=== PATIENT | female | born 1945 | race Caucasian/White ===

== ENCOUNTER → 2016-05-28 | Outpatient (CLI) | payer OTHER, MEDICARE ==
--- NOTE | 2016-05-28 12:46 | MAMMOGRAPHY REPORT ---
BILATERAL DIGITAL SCREENING MAMMOGRAM WITH CAD: 05/28/2016 CLINICAL HISTORY: Routine screening. Patient has no complaints. TECHNIQUE: Bilateral CC and MLO views were obtained. Current study was also evaluated with a Comput er Aided Detection (CAD) system. COMPARISON: Comparison is made to exams dated: 05/14/2015 mammogram, 03/31/2013 mammogram, 04/27/2014 mammogram, 03/19/2012 mammogram, 03/03/2011 mammogram, and 02/25/2010 mammogram - [facility]. BREAST COMPOSITION: The tissue of both breasts is almost entirely fatty. FINDINGS: There are benign appearing rodlike secretory calcifications in the breasts. No new suspic ious mass, architectural distortion or cluster of microcalcifications is seen. IMPRESSION: ACR BI-RADS CATEGORY 2: BENIGN There is no mammographic evidence of malignancy. A 1 year screening mammogram is recommended. The p atient will receive written notification of the results. Approximately 10% of breast cancers are not detected with mammography. A negative mammographic repor t should not delay biopsy if a clinically suggestive mass is present. Shraddha Jones M.D. ay/:05/28/2016 08:51:15 Culinary Internship: Clarissa GAONA(Julio)(Peri), [facility] letter sent: Normal 1/2 BI-RADS Code: ACR BI-RADS Category 2: Benign
== END | disposition home or self-care (01) ==
LOC: C.MAMM 08:23
PROVIDERS: ATTEND Obstetrics & Gynecology
DX: Z12.31 Encounter for screening mammogram for malignant neoplasm of breast (principal)

== ENCOUNTER → 2016-09-16 | Outpatient (CLI) | payer OTHER, MEDICARE ==
[2016-09-16 09:54] LABS: ALT/SGPT 36 U/L (12-78); BLOOD UREA NITROGEN 13 mg/dl (7-18); BUN/CREATININE RATIO 15.2 (10-20); CARBON DIOXIDE 28 mmol/L (21-32); CHLORIDE 110 mmol/L (98-107); CREATININE 0.85 mg/dl (0.60-1.20); GLUCOSE 88 mg/dl (70-99); SODIUM 143 mmol/L (136-145)
[2016-09-16 10:05] LABS: CHOLESTEROL 199 mg/dl (0-200); CHOLESTEROL/HDL RATIO 3.2; HDL CHOLESTEROL 63 mg/dl; LDL CHOLESTEROL CALCULATED 108 mg/dl; TRIGLYCERIDES 139 mg/dl (0-150); VERY LOW DENSITY LIPOPROT CALC 28 mg/dl
== END | disposition home or self-care (01) ==
LOC: C.LAB1850 07:13
PROVIDERS: ATTEND Family Medicine
DX: E03.9 Hypothyroidism, unspecified (principal); I10 Essential (primary) hypertension; E78.00 Pure hypercholesterolemia, unspecified

== ENCOUNTER → 2016-10-06 | Outpatient (CLI) | payer OTHER, MEDICARE | END | disposition home or self-care (01) | LOC: C.MAMM 08:54 | PROVIDERS: ATTEND Obstetrics & Gynecology | DX: M85.851 Other specified disorders of bone density and structure, right thigh (principal); M85.852 Other specified disorders of bone density and structure, left thigh ==

== ENCOUNTER → 2016-12-05 | Outpatient (CLI) | payer OTHER, MEDICARE | END | disposition home or self-care (01) | LOC: C.LAB1850 13:02 | PROVIDERS: ATTEND Neuromusculoskeletal Medicine & OMM | DX: E03.9 Hypothyroidism, unspecified (principal) ==

== ENCOUNTER → 2017-06-23 | Outpatient (CLI) | payer OTHER, MEDICARE ==
--- NOTE | 2017-06-24 15:06 | MAMMOGRAPHY REPORT ---
BILATERAL DIGITAL SCREENING MAMMOGRAM TOMOSYNTHESIS WITH CAD: 06/23/2017 CLINICAL HISTORY: Routine screening. Patient has no complaints. TECHNIQUE: Breast tomosynthesis in addition to standard 2D mammography was performed. Current study was also evaluated with a Computer Aided Detection (CAD) system. COMPARISON: Comparison is made to exams dated: 05/28/2016 mammogram, 05/14/2015 mammogram, 04/27/2014 m ammogram, 03/31/2013 mammogram, 03/19/2012 mammogram, and 03/03/2011 mammogram - [facility]ter. BREAST COMPOSITION: The tissue of both breasts is almost entirely fatty. FINDINGS: There are benign rim calcifications in both breasts. No suspicious mass, architectural di stortion or cluster of microcalcifications is seen. IMPRESSION: ACR BI-RADS CATEGORY 2: BENIGN There is no mammographic evidence of malignancy. A 1 year screening mammogram is recommended. The pa tient will receive written notification of the results. Approximately 10% of breast cancers are not detected with mammography. A negative mammographic report should not delay biopsy if a clinically suggestive mass is present. Shraddha Jones M.D. ay/:06/23/2017 15:27:03 Certified Driver Examiner: Tory GAONA(R)(M), [facility] letter sent: Normal 1/2 BI-RADS Code: ACR BI-RADS Category 2: Benign
== END | disposition home or self-care (01) ==
LOC: C.MAMM 13:31
PROVIDERS: ATTEND Obstetrics & Gynecology
DX: Z12.31 Encounter for screening mammogram for malignant neoplasm of breast (principal)

== ENCOUNTER → 2017-09-14 | Outpatient (CLI) | payer OTHER, MEDICARE ==
[2017-09-14 10:03] LABS: ALT/SGPT 29 U/L (12-78); BLOOD UREA NITROGEN 13 mg/dl (7-18); CALCIUM 9.1 mg/dl (8.5-10.1); CARBON DIOXIDE 29 mmol/L (21-32); CHOLESTEROL 173 mg/dl (0-200); CREATININE 0.74 mg/dl (0.60-1.20); GLUCOSE 95 mg/dl (70-99); LDL CHOLESTEROL CALCULATED 86 mg/dl; SODIUM 140 mmol/L (136-145)
== END | disposition home or self-care (01) ==
LOC: C.LAB1850 07:48
PROVIDERS: ATTEND Family Medicine
DX: I10 Essential (primary) hypertension (principal); E78.00 Pure hypercholesterolemia, unspecified; E03.9 Hypothyroidism, unspecified

== ENCOUNTER 2020-05-14 06:13 | Inpatient (IN) ==
--- NOTE | 2020-04-26 11:36 | PAT Medication Instructions ---
Medication Instructions Date of Service April 26, 2020 Home Medications Medication Instructions Recorded lorazepam 0.5 mg tablet 0.5 mg PO DAILY PRN #90 tab 09/02/19 aspirin 81 mg PO BID #60 tab 01/04/20 levothyroxine 125 mcg tablet 62.5 mcg PO QAM #45 tab 02/08/20 amlodipine 10 mg tablet 10 mg PO PM #90 tab 02/24/20 omeprazole 20 mg capsule,delayed 20 mg PO QAM PRN #90 cap 02/24/20 release zolpidem 5 mg tablet 5 mg PO HS PRN #30 tab 04/04/20 simvastatin 10 mg tablet 10 mg PO PM #90 tab 04/05/20 Citracal-D3 Maximum Plus 1 tab PO BID multivitamin 1 tab PO QPM lorazepam 0.5 mg tablet 0.5 mg PO DAILY PRN melatonin 5 mg capsule 5 mg PO QPM aspirin 81 mg PO BID levothyroxine 125 mcg tablet 62.5 mcg PO QAM amlodipine 10 mg tablet 10 mg PO PM omeprazole 20 mg capsule,delayed release 20 mg PO QAM PRN zolpidem 5 mg tablet 5 mg PO HS PRN simvastatin 10 mg tablet 10 mg PO PM ASK your surgeon for instructions aspirin 81 mg PO BID DO NOT take the morning of surgery Citracal-D3 Maximum Plus 1 tab PO BID Take morning of surgery With a small sip of water, OTHERWISE NOTHING TO EAT OR DRINK AFTER MIDNIGHT: lorazepam 0.5 mg tablet 0.5 mg PO DAILY PRN (if needed) levothyroxine 125 mcg tablet 62.5 mcg PO QAM omeprazole 20 mg capsule,delayed release 20 mg PO QAM PRN (if needed) Take evening before surgery Citracal-D3 Maximum Plus 1 tab PO BID multivitamin 1 tab PO QPM lorazepam 0.5 mg tablet 0.5 mg PO DAILY PRN (if needed) melatonin 5 mg capsule 5 mg PO QPM amlodipine 10 mg tablet 10 mg PO PM zolpidem 5 mg tablet 5 mg PO HS PRN (if needed) simvastatin 10 mg tablet 10 mg PO PM Other Notes If you have any questions please call us at [phone] or [phone] or [phone] or [phone]
--- NOTE | 2020-05-01 12:49 | Anesthesiology Consultation ---
Date of Service May 01, 2020 Assessment & Plan (1) Encounter for pre-operative examination: Chart Review Chart Review: Pending: Refer to Additional Notes / Consult section (pending PCP clearance and preop Covid testing ) and Patient seen in Pre Admission Testing Awaiting PCP office visit scheduled 05/07 Per PAT appt on 05/01/20, no recent travel. No known Covid positive contacts or Covid related symptoms. No known Covid infection in the past 90 days. [place] [facility] [place]. Educated on importance of self quarantining, social distancing and wearing mask in public both for the patient and household contacts. Right foot; arthrosurface hemiarthroplasty 01/04/20= Done under GA with LMA #4 x 1 attempt; atraumatic with good seal. Teaching & Discussion Pre-Anesthesia Teaching/Discussion Notes: Instructed NPO after midnight before surgery,except medications with 15 cc of water. Medication instructions provided according to the PAT guidelines. History Surgery Operation Date: 05/14/20 07:45 Proposed Procedures p L3-S1 Decompression and Fusion, Spinal Cord Monitoring - Sergio Payne, Height/Weight Height: 5 ft 4.5 in Weight: 73.9 kg Allergies Allergy/AdvReac Type Severity Reaction Status Date / Time Penicillins Allergy Intermediate Hives Verified 04/04/20 14:04 codeine AdvReac Intermediate Severe Verified 04/04/20 14:04 abdominal pain Medications Home Medications Medication Instructions Recorded Confirmed Last Taken Citracal-D3 Maximum Plus 1 tab PO BID 07/18/19 04/04/20 01/03/20 17:00 multivitamin 1 tab PO QPM 07/18/19 04/04/20 01/03/20 17:00 melatonin 5 mg capsule 5 mg PO QPM cap 12/27/19 04/04/20 01/03/20 21:00 levothyroxine 125 mcg tablet 62.5 mcg PO QAM #45 tab 02/08/20 04/04/20 Unknown amlodipine 10 mg tablet 10 mg PO PM #90 tab 02/24/20 04/04/20 Unknown omeprazole 20 mg capsule,delayed 20 mg PO QAM PRN #90 cap 02/24/20 04/04/20 Unknown release zolpidem 5 mg tablet 5 mg PO HS PRN #30 tab 04/04/20 Unknown simvastatin 10 mg tablet 10 mg PO PM #90 tab 04/05/20 Unknown lorazepam 0.5 mg tablet 0.5 mg PO DAILY PRN #90 tab 05/02/20 Unknown Past Medical History Medical History GERD (gastroesophageal reflux disease) controlled HTN, goal below 140/90 Hypercholesterolemia Hypothyroidism Osteoarthritis Spinal stenosis lumbar 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 No hx of jaw locking - occ clicking Exercise / Class Metabolic Activity II 4-5 Yardwork/Stairs/Walk up hill (one flight of stairs- no chest pain or SOB ) Past Family History Family History Unknown Tuberculosis Osteoporosis Coronary heart disease Pure hypercholesterolemia Hypothyroidism Mother Acute myocardial infarction Hyperlipidemia Myocardial infarction Hypertension Stroke Father Thyroid disease Diabetes Daughter Mentally disabled Grandfather Heart disease Grandmother (Maternal) Diabetes Denies family history of Colon cancer Ovarian cancer Prostate cancer Breast cancer Past Surgical History Surgical History H/O section X 2 H/O shoulder surgery right H/O tubal ligation History of colonoscopy History of dilation and curettage History of foot surgery Rt - 01/04/2020 [facility] History of right cataract extraction History of tonsillectomy and adenoidectomy Hx of appendectomy Hx of left cataract extraction Trigger finger REPAIRED [place] teeth removed Past Anesthesia History No Hx of Anesthesia Complications and No Family Hx of Anesthesia Complications History of PONV No Hx of PONV and No Hx of Motion Sickness Social History Smoking Status: Former smoker tobacco type: cigarettes Do You Dip or Chew Tobacco: No Smoking End Date: quit over 50 years ago Hx Alcohol Use: Yes Alcohol type: wine alcohol intake frequency: a few times a week Hx Substance Use: No substance use type: does not use Review of Systems Patient denies chest pain, shortness of breath, dyspnea on exertion, cough, wheezing, palpitations. No hx of seizures, stroke, NH, apnea/snoring. No hx of blood clots or blood transfusions Physical Exam Vital Signs VITALS BP 142/71 P 67 TEMP 97.6 SP02 99% RESP 16 Constitutional no acute distress ENMT Mouth: no TMJ clicking Thyromental Distance: > or= 3.5 Finger Breadths (3.5) Mallampati Class: I Permanent bridge top side left teeth Neck neck extension not limited Respiratory normal respiratory effort; no respiratory distress Auscultation: lungs clear to auscultation bilaterally; no wheezes Cardiovascular Rate/Rhythm: regular rate and regular rhythm Heart Sounds: no murmur Vessels: no carotid bruit Musculoskeletal Spine: no pain with cervical ROM Extremities: extremities normal to inspection Psychiatric Orientation: alert Testing Laboratory Results 05/01/20 13:19 05/01/20 13:19 PT 9.7 Seconds (9.0-12.0) 05/01/20 13:19 INR 1.0 (0.9-1.1) 05/01/20 13: APTT 26.1 Seconds (21.0-31.0) 05/01/20 13:19 Urine Color Yellow 05/01/20 Unknown Urine Appearance Clear (Clear) 05/01/20 Unknown Urine pH 5.5 (4.5-7.5) 05/01/20 Unknown Ur Specific [place] 1.009 (1.000-1.030) 05/01/20 Unknown Urine Protein Negative (Negative) 05/01/20 Unknown Urine Glucose (UA) Negative (Negative) 05/01/20 Unknown Urine Ketones Negative (Negative) 05/01/20 Unknown Urine Nitrite Negative (Negative) 05/01/20 Unknown Ur Leukocyte Esterase Negative (Negative) 05/01/20 Unknown Blood Type A Positive 05/01/20 13:19 Antibody Screen NEGATIVE 05/01/20 13:19 Electrocardiogram Date: 12/02/19 Findings: + NSR @ (67) Chest X-Ray Date: 12/02/19 FINDINGS: Cardiomediastinal and hilar silhouettes are within normal limits. Calcified plaque of the aorta. No pneumothorax, pleural effusion, airspace conso lidation or overt pulmonary edema. Bones of the chest appear grossly intact. IMPRESSION: No acute process.
[2020-05-01 15:14] LABS: Basophils # (auto) 0.02 K/uL (0-0.2); Basophils % (auto) 0.3 %; Eosinophils # (auto) 0.09 K/uL (0-0.5); Eosinophils % (auto) 1.6 %; Hematocrit (blood only) 45.9 % (37-47); Hemoglobin 15.2 g/dL (12.0-16.0); Immature Granulocytes # (auto) 0.01 K/uL (0.00-0.02); Immature Granulocytes % (auto) 0.2 %; Lymphocytes # (auto) 1.93 K/uL (1.2-3.4); Lymphocytes % (auto) 33.4 %; Mean Corpuscular Hemoglobin 30.5 pg (25-34); Mean Corpuscular Hgb Conc 33.1 g/dL (32-36); Mean Corpuscular Volume 92.2 fL (80-100); Mean Platelet Volume 11.1 fL (7.4-10.4); Monocytes # (auto) 0.42 K/uL (0.11-0.59); Monocytes % (auto) 7.3 %; Neutrophils % (auto) 57.2 %; Platelet Count 253 K/uL (130-400); RDW Coefficient of Variation 12.9 % (11.5-14.5); RDW Standard Deviation 43.4 fL (36.4-46.3); Red Blood Count 4.98 M/uL (4.2-5.4); White Blood Count 5.77 K/uL (4.8-10.8)
[2020-05-01 15:18] LABS: Appearance Urine Clear (Clear); Bilirubin Urine Negative (Negative); Blood Urine Negative (Negative); Color Urine Yellow; Glucose Urine UA Negative (Negative); Ketones Urine Negative (Negative); Leukocyte Esterase Urine Negative (Negative); Nitrite Urine Negative (Negative); Protein Urine Negative (Negative); Specific Gravity Urine 1.009 (1.000-1.030); Urobilinogen Urine Negative (Negative); pH Urine 5.5 (4.5-7.5)
[2020-05-01 15:24] LABS: BUN Creatinine Ratio 21.7 (10-20); Calcium 9.8 mg/dl (8.5-10.1); Creatinine Clr Calc Pharmacy 59.2 ml/min; Est GFR (African American) 80.5; Est GFR (Non-African American) 69.5; Potassium 3.8 mmol/L (3.5-5.1)
[2020-05-01 15:30] LABS: Partial Thromboplastin Time 26.1 Seconds (21.0-31.0); Prothrombin Time 9.7 Seconds (9.0-12.0)
[~2020-05-14 06:13] MED LIST: CLINDAMYCIN 600 MG/54 ML BAG IV SCH; GABAPENTIN 300 MG CAP PO SCH; LR 15ML/HR IV SCH; ceFAZolin 1000MG 1,000 MG/7.5 ML SYR IV SCH
[2020-05-14] MEDS ORDERED: MIDAZOLAM HCL 1 MG/ML 2ML VIAL ONE (06:48)
[2020-05-14] MEDS ORDERED: fentaNYL citrate 100 MCG/2 ML VIAL ONE (06:48)
[2020-05-14] MEDS ORDERED: ROCURONIUM BROMIDE 10 MG/ML 5 ML VIAL IV ONE (06:49)
[2020-05-14] MEDS ORDERED: GLYCOPYRROLATE 0.2 MG/ML VIAL ONE (06:49)
[2020-05-14] MEDS ORDERED: ONDANSETRON INJ 2 MG/ML 2 ML VIAL ONE (06:49)
[2020-05-14] MEDS ORDERED: NEOSTIGMINE METHYLSULFATE 1 MG/ML 10ML VIAL ONE (06:49)
[2020-05-14] MEDS ORDERED: LIDOCAINE HCL 2% 2 ML VIAL/AMP(20MG/ML) INFIL ONE (06:49)
[2020-05-14] MEDS ORDERED: DEXAMETHASONE SOD INJ 4 MG/ML VIAL ONE (06:49)
[2020-05-14] MEDS ORDERED: PROPOFOL IV EMULSION 10 MG/ML 20 ML VIAL IV ONE (06:49)
[2020-05-14] MEDS ORDERED: BUPIVACAINE/EPINEPHRINE 0.5% MPF 1:200,000 30 ML VIAL ONE (07:13)
[2020-05-14] MEDS ORDERED: BACITRACIN INJ 50,000 UNIT VIAL ONE (07:14)
--- NOTE | 2020-05-14 07:32 | History & Physical Bridge Note ---
Date of Service May 14, 2020 History & Physical Bridge Note I have examined the patient, reviewed the History & Physical and in the interval since the performance of the History & Physical I have noted the following changes of clinical significance: no changes noted
--- NOTE | 2020-05-14 07:33 | History & Physical Report ---
Date of Service May 14, 2020 Assessment & Plan (1) Neurogenic claudication due to lumbar spinal stenosis: Admission and Anticipated Discharge Date Admission Date: L3-S1 decompression fusion History of Present Illness Chief Complaint: Back and bilateral leg pain Primary Care Provider: Geena Leiva MD This is a 75-year-old female presents with chronic persistent back and leg pain. Failing course of nonoperative care she is here for surgical invention. Allergies Allergy/AdvReac Type Severity Reaction Status Date / Time Penicillins Allergy Intermediate Hives Verified 05/14/20 06:36 codeine AdvReac Intermediate Severe Verified 05/14/20 06:36 abdominal pain iodine AdvReac Intermediate Hives Verified 05/14/20 06:36 Home Medications Medication Instructions Recorded Confirmed Type Citracal-D3 Maximum Plus 1 tab PO BID 07/18/19 05/14/20 History multivitamin 1 tab PO QAM 07/18/19 05/14/20 History melatonin 5 mg capsule 5 mg PO QPM cap 12/27/19 05/14/20 History levothyroxine 125 mcg tablet 62.5 mcg PO QAM #45 tab 02/08/20 05/14/20 Rx amlodipine 10 mg tablet 10 mg PO PM #90 tab 02/24/20 05/14/20 Rx omeprazole 20 mg capsule,delayed 20 mg PO QAM PRN #90 cap 02/24/20 05/14/20 Rx release simvastatin 10 mg tablet 10 mg PO PM #90 tab 04/05/20 05/14/20 Rx lorazepam 0.5 mg tablet 0.5 mg PO DAILY PRN #90 tab 05/02/20 05/14/20 Rx zolpidem [Ambien] 5 mg PO HS PRN 05/14/20 05/14/20 History Past Med/Surg History Medical History GERD (gastroesophageal reflux disease) controlled HTN, goal below 140/90 Hypercholesterolemia Hypothyroidism Osteoarthritis Spinal stenosis lumbar 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 No hx of jaw locking - occ clicking Surgical History H/O section X 2 H/O shoulder surgery right H/O tubal ligation History of colonoscopy History of dilation and curettage History of foot surgery Rt - 01/04/2020 [facility] History of right cataract extraction History of tonsillectomy and adenoidectomy Hx of appendectomy Hx of left cataract extraction Trigger finger REPAIRED [place] teeth removed Family History Unknown Tuberculosis Osteoporosis Coronary heart disease Pure hypercholesterolemia Hypothyroidism Mother Acute myocardial infarction Hyperlipidemia Myocardial infarction Hypertension Stroke Father Thyroid disease Diabetes Daughter Mentally disabled Grandfather Heart disease Grandmother (Maternal) Diabetes Denies family history of Colon cancer Ovarian cancer Prostate cancer Breast cancer Social History Smoking Status: Former smoker Age Started Using Tobacco: 18; Age Quit Using Tobacco: 20; packs per day: 0.25; Years Smoked: 2; Smoking End Date: quit over 50 years ago; Second Hand Exposure: Yes ( A CHILD); Do You Dip or Chew Tobacco: No; Tobacco Cessation Education Requested by Patient: No Hx Alcohol Use: Yes Alcohol type: wine Alcohol Intake Frequency Comment: 4 -4 oz glasses of wine per week Hx Substance Use: No Preferred Language: Spanish Communication Ability: Effective Visual Impairment: No Limitations Hearing Ability: Normal Speech And Language Clinician Required: No Beliefs That Will Affect Care: None marital status: Current Living Situation: Spouse 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
[2020-05-14] MEDS ORDERED: ONDANSETRON INJ 2 MG/ML 2 ML VIAL IV PRN ×2 (07:37→11:33)
[2020-05-14] MEDS ORDERED: ePHEDrine sulfate 50 MG/ML AMP IV PRN (07:37)
[2020-05-14] MEDS ORDERED: ATROPINE SULFATE 0.1 MG/ML 10ML SYR IV PRN (07:37)
[2020-05-14] MEDS ORDERED: HYDROmorphone INJ 0.5 MG/0.5 ML SYR IV PRN ×2 (07:37→11:33)
[2020-05-14] MEDS ORDERED: fentaNYL citrate 100 MCG/2 ML VIAL IV PRN (07:37)
[2020-05-14] MEDS ORDERED: HYDROmorphone INJ 2 MG/ML SYR/VIAL ONE (09:47)
[2020-05-14] MEDS ORDERED: FLOSEAL HEMOSTATIC MATRIX 10ML TOP ONE (09:48)
--- NOTE | 2020-05-14 09:50 | Operative Report ---
Post Operative Report Pre & Post Diagnosis Operation Date: 05/14/20 07:45 Pre-Op Diagnosis: Spinal Stenosis, Lumbar Region with Neurogenic Post-Op Diagnosis: Spinal Stenosis, Lumbar Region with Neurogenic I identified the patient and participated in the time-out.: Yes Procedure Operation Date: 05/14/20 07:45 Actual Procedures #1 lumbar decompression with bilateral medial facetectomies and foraminotomies L3-4, L4-5 and L5-S1. #2 posterior spinal fusion L3-4, L4-5 L5-S1. #3 placement posterior segmental instrumentation L3-S1. #4 interbody fusion L4-5 L5-S1. #5 placement peek cage 11 x 22 mm at L for 5 and 10 x 22 at L5-S1. #6 placement locally harvested morselized autograft in the posterior lateral gutters. #7 placed infuse collagen sponge, master graft in the posterior lateral gutters and I factor in the interbody spaces. Surgeon Sergio Payne, Egg Pasteurizer Valerie Mills Estimated Blood Loss 100 Findings Consistent with Post-Op Diagnosis Specimens None Indications This is a 75-year-old female presents with above-mentioned diagnosis after failing since course of nonoperative care she is here for the above-mentioned procedure. Description of Procedure Patient met with identified informed consent obtained. Patient was then taken to the operative suite underwent an patient placed in a prone position the Olds table top Melvin frame. All bony prominences well-padded eyes inspected to ensure no external pressure placed upon the. This point the lumbar spine was prepped and draped in a sterile fashion. Sharp dissection with the assistance of Bovie cautery performed down to and exposing the lamina and transverse processes of L3-L4-L5 and the sacral ala bilaterally. From a caudal cephalad fashion complete laminectomy of L5 L4 and L3 was performed including bilateral medial facetectomies and foraminotomies addressing severe spinal stenosis. Pedi jeannette screws were then placed L3-L4-L5 and S1 levels bilaterally with assistance of fluoroscopy the proper sized claude placed. By way of a transfemoral approach on the right a complete discectomy of L5-S1 was performed endplates curetted to subcortical mean bone and a 10 x 22 mm peek cage filled with I factor tapped in position. Then proceeded L4-L5 and again by way of a transforaminal portion right complete discectomy performed endplates curetted to subcortical being bone and a 11 x 22 mm peek cage filled with I factor tapped in position. The rods were then locked in final position bilaterally. The transverse processes of L3-L4-L5 and sacral ala burred to subcortical bleeding bone. Infuse collagen sponge mass graft local autograft was placed in the posterior lateral gutters. 15 round BLAS drain inserted. The incision was then closed with 1 Vicryl the fascia 2-0 Vicryl subcutaneously and 4 Monocryl for final skin closure. Steri- Strip sterile dressings placed. Patient will continue PACU stable condition. Please note spinal cord monitoring was utilized at the procedure no changes noted. I attest to the content of the Intraoperative Record and any orders documented therein. Any exceptions are noted below.
--- NOTE | 2020-05-14 11:23 | Anesthesiology Progress Note ---
Date of Service May 14, 2020 Anesthesia Post Procedure Vital Signs Vital Signs: Temp Pulse Pulse Resp BP BP Pulse Ox 05/14/20 11:08 36.4 C L 64 16 104/55 L 100 05/14/20 10:55 63 16 101/49 L 99 05/14/20 10:50 36.3 C L 60 12 102/51 L 99 05/14/20 10:40 64 18 99/56 L 99 05/14/20 10:30 60 12 106/62 98 05/14/20 10:20 61 10 L 110/49 L 98 05/14/20 10:13 36.0 C L 69 17 99/50 L 99 05/14/20 06:41 36.7 C 58 L 18 166/75 H 99 Transfer of Care Handoff Completed per policy Notes Mental Status: alert / awake / arousable and participated in evaluation Patient Amnestic to Procedure: Yes Nausea / Vomiting: adequately controlled Pain: adequately controlled Airway Patency, RR, SpO2: stable & adequate BP & HR: stable & adequate Hydration State: stable & adequate Anesthetic Complications: no major complications apparent and Pt Satisfied with anesthetic care
[2020-05-14] MEDS ORDERED: LORazepam 0.5 MG/1 ML VIAL IV PRN (11:33)
[2020-05-14] MEDS ORDERED: traMADol HCL 50 MG TABLET PO PRN (11:33)
[2020-05-14] MEDS ORDERED: ACETAMINOPHEN 1,000 MG/100 ML VIAL IV PRN (11:33)
[2020-05-14] MEDS ORDERED: NALOXONE HCL 0.4 MG/1 ML VIAL/CARP IV PRN (11:33)
[2020-05-14] MEDS ORDERED: bisacodyL 10 MG SUPP PR PRN (11:33)
[2020-05-14] MEDS ORDERED: ALUMINUM/MAGNESIUM SUSP 30 ML UDC PO PRN (11:33)
[2020-05-14] MEDS ORDERED: METOCLOPRAMIDE HCL INJ 5 MG/ML 2 ML VIAL IV PRN (11:33)
[2020-05-14] MEDS ORDERED: MAGNESIUM HYDROXIDE SUSP 30 ML UDC PO PRN (11:33)
[2020-05-14] MEDS ORDERED: LORazepam 0.5 MG TAB PO PRN (11:33)
[2020-05-14] MEDS ORDERED: ACETAMINOPHEN 500 MG TAB PO PRN (11:33)
[2020-05-14] MEDS ORDERED: FAMOTIDINE 20 MG TAB PO PRN (11:33)
[2020-05-14] MEDS ORDERED: SOD PHOSPHATE/SOD BIPHOSPHATE ENEMA 132 ML BTL PR PRN (11:33)
[2020-05-14] MEDS ORDERED: hydrOXYzine HCl 25 MG TAB PO PRN (11:33)
[2020-05-14] MEDS ORDERED: ZOLPIDEM TARTRATE 5 MG TAB PO PRN (11:33)
[2020-05-14] MEDS ORDERED: HYDROmorphone INJ 1 MG/ML SYRINGE IV PRN (11:33)
[2020-05-14] MEDS ORDERED: PROMETHAZINE HCL 12.5 MG in SODIUM CHLORIDE 0.9% 50 ML IV PRN (11:33)
[2020-05-14] MEDS ORDERED: DO NOT ADMINISTER FLU VACCINE PRN (11:33)
[2020-05-14] MEDS ORDERED: ONDANSETRON 4 MG OD TAB PO PRN (11:33)
[2020-05-14] MEDS ORDERED: DO NOT ADMINISTER PNEUMOCOCCAL VACCINE PRN (11:33)
[2020-05-14] MEDS ORDERED: diphenhydrAMINE Capsule 25 MG CAP PO PRN (11:33)
[2020-05-14] MEDS ORDERED: PANTOprazole 40 MG TAB PO PRN (11:50)
--- NOTE | 2020-05-14 12:14 | Fluoroscopy Report ---
FL lumbar spine 2-3V CLINICAL HISTORY: L3-S1 DECOMPRESSION AND FUSION COMPARISON STUDY: None. FLUOROSCOPY TIME: 28 seconds. FLUOROSCOPIC IMAGES: 3 FINDINGS: Fluoroscopy was provided during L4-L5 and L5-S1 discectomies with interbody spacer placemen t. There is a posterior decompression. Bilateral pedicle screws at the L3, L4, L5 and S1 levels are n oted. There are interconnecting rods. Hardware is intact. There are no unexpected radiopaque foreign bodies. IMPRESSION: Fluoroscopy provided during L4-L5 and L5-S1 discectomies with posterior decompression an d L3-S1 bilateral pedicle screw fusion. ACT 112: Negative or not required by law. Electronically signed by: David Ferrari M.D. 05/14/2020 12:12 PM
--- NOTE | 2020-05-14 12:57 | Hospitalist Consultation ---
Date of Consultation May 14, 2020 Assessment & Plan (1) Neurogenic claudication due to lumbar spinal stenosis: Patient failed conservative treatment as an outpatient and underwent L4-S1 discectomy with posterior decompression and screw fusion with Dr. Payne POD #0 Pain is generally controlled No fever or chills Physical therapy and Occupational Therapy per orthopedics Further management per orthopedics (2) HTN, goal below 140/90: Hypertension is stable at this point Continue usual home medications No indication for telemetry Further management as an outpatient (3) Hypercholesterolemia: Continue simvastatin (4) Hypothyroidism: Continue levothyroxine (5) Insomnia: Continue Ambien and lorazepam as needed (6) Heartburn: Outpatient meds include omeprazole 20 mg daily Continue GERD management as an outpatient Continue PPI inpatient and discharge on usual home meds Thank you very much for including us in the care of this patient. Multiple systems were reviewed and are stable. At this time we will sign off. Please feel free to reconsult as needed. Please refer to Dr. Good's addendum for corrections and additions. Supervising Physician Co-Signing Physician Notes I personally saw and examined the patient. I verified all holguin points and agree with YOSVANY Gomez with the following exceptions and/or additions: None History of Present Illness Attending Physician: Sergio Payne, DO History of Present Illness Attending: Dr. Good This is a very pleasant 75-year-old female who underwent laminectomy and fusion of through L3-S1 earlier today with Dr. Payne. Pain is generally well controlled. She still appears to be under the influence of some anesthesia as she is drifting off frequently during our conversation. She does easily awaken and is oriented x3. Past medical history includes hypertension, hypothyroidism, anxiety, insomnia, GERD, hyperlipidemia. Patient failed conservative treatment as an outpatient for lumbar go. She was found to have degenerative disease of her lumbar and upper sacral section. She underwent surgery with Dr. Payne today and did very well.She denies any fever or chills. Her pain is generally controlled. She has no chest pain or tightness. She has no abdominal pain. She has no back pain at this time.She has no acute complaints. Allergies Allergy/AdvReac Type Severity Reaction Status Date / Time Penicillins Allergy Intermediate Hives Verified 05/14/20 06:36 codeine AdvReac Intermediate Severe Verified 05/14/20 06:36 abdominal pain iodine AdvReac Intermediate Hives Verified 05/14/20 06:36 Home Medications Medication Instructions Recorded Confirmed Type Citracal-D3 Maximum Plus 1 tab PO BID 07/18/19 05/14/20 History multivitamin 1 tab PO QAM 07/18/19 05/14/20 History melatonin 5 mg capsule 5 mg PO QPM cap 12/27/19 05/14/20 History levothyroxine 125 mcg tablet 62.5 mcg PO QAM #45 tab 02/08/20 05/14/20 Rx amlodipine 10 mg tablet 10 mg PO PM #90 tab 02/24/20 05/14/20 Rx omeprazole 20 mg capsule,delayed 20 mg PO QAM PRN #90 cap 02/24/20 05/14/20 Rx release simvastatin 10 mg tablet 10 mg PO PM #90 tab 04/05/20 05/14/20 Rx lorazepam 0.5 mg tablet 0.5 mg PO DAILY PRN #90 tab 05/02/20 05/14/20 Rx oxycodone 5 mg PO Q6H PRN #30 tab 05/14/20 Rx tramadol 50 mg PO Q6H PRN #30 tab 05/14/20 Rx zolpidem [Ambien] 5 mg PO HS PRN 05/14/20 05/14/20 History Patient History Medical History GERD (gastroesophageal reflux disease) controlled HTN, goal below 140/90 Hypercholesterolemia Hypothyroidism Osteoarthritis Spinal stenosis lumbar 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 No hx of jaw locking - occ clicking Surgical History H/O section X 2 H/O shoulder surgery right H/O tubal ligation History of colonoscopy History of dilation and curettage History of foot surgery Rt - 01/04/2020 [facility] History of right cataract extraction History of tonsillectomy and adenoidectomy Hx of appendectomy Hx of left cataract extraction Trigger finger REPAIRED [place] teeth removed Family History Unknown Tuberculosis Osteoporosis Coronary heart disease Pure hypercholesterolemia Hypothyroidism Mother Acute myocardial infarction Hyperlipidemia Myocardial infarction Hypertension Stroke Father Thyroid disease Diabetes Daughter Mentally disabled Grandfather Heart disease Grandmother (Maternal) Diabetes Denies family history of Colon cancer Ovarian cancer Prostate cancer Breast cancer Social History Smoking Status: Former smoker Age Started Using Tobacco: 18; Age Quit Using Tobacco: 20; packs per day: 0.25; Years Smoked: 2; Smoking End Date: quit over 50 years ago; Second Hand Exposure: Yes ( A CHILD); Do You Dip or Chew Tobacco: No; Tobacco Cessation Education Requested by Patient: No Hx Alcohol Use: Yes Alcohol type: wine Alcohol Intake Frequency Comment: 4 -4 oz glasses of wine per week Hx Substance Use: No Preferred Language: Citizen Of [place] Communication Ability: Effective Visual Impairment: No Limitations Hearing Ability: Normal Corporate Safety Coordinator Required: No Beliefs That Will Affect Care: None marital status: Current Living Situation: Spouse current occupational status: 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 Pleasant. Talkative EYES: No icterus, gaze conjugate. Pupils are constricted but reactive. NOSE: No evidence of epistaxis MOUTH: No lesions or candidiasis NECK: Supple LUNGS: CTA B/L, no wheezes, rales or rhonchi HEART: Regular, rate controlled ABDOMEN: Soft, NT, ND, BS Present BACK: Did not examine dressing as patient was just recently seen by Dr. Payne EXTREMITIES: No LE edema, pedal pulses intact and equal bilaterally. SCDs and ANYI hose are in place. Patient has good sensation to bilateral feet. Strength is equal and appropriate. Did not assess for straight leg raise at this time. NEURO: A&OX3 Results & Data Results & Data ([facility]) Vital Signs (Past 12 Hours) Vital Signs Temp Pulse Pulse Resp BP BP Pulse Ox 05/14/20 12:10 36.3 C L 64 16 114/61 100 05/14/20 11:35 36.4 C L 63 16 109/61 100 05/14/20 11:08 36.4 C L 64 16 104/55 L 100 05/14/20 10:55 63 16 101/49 L 99 05/14/20 10:50 36.3 C L 60 12 102/51 L 99 05/14/20 10:40 64 18 99/56 L 99 05/14/20 10:30 60 12 106/62 98 05/14/20 10:20 61 10 L 110/49 L 98 05/14/20 10:13 36.0 C L 69 17 99/50 L 99 05/14/20 06:41 36.7 C 58 L 18 166/75 H 99 Laboratory Results 05/01/20 13:19 05/01/20 13:19 Diagnostic Findings FL lumbar spine 2-3V CLINICAL HISTORY: L3-S1 DECOMPRESSION AND FUSION COMPARISON STUDY: None. FLUOROSCOPY TIME: 28 seconds. FLUOROSCOPIC IMAGES: 3 FINDINGS: Fluoroscopy was provided during L4-L5 and L5-S1 discectomies with interbody spacer placement. There is a posterior decompression. Bilateral pedicle screws at the L3, L4, L5 and S1 levels are noted. There are interconnecting rods. Hardware is intact. There are no unexpected radiopaque foreign bodies. IMPRESSION: Fluoroscopy provided during L4-L5 and L5-S1 discectomies with posterior decompression and L3-S1 bilateral pedicle screw fusion. Electronically signed by: David Ferrari M.D. 05/14/2020 12:12 PM PG Care Time/CCT Total # of Minutes Spent Total Time Spent with Patient: Total time spent is greater than 50% in coordi nation of care (as documented) at patient's floor/unit and/or counseling patient: Coding Level of Care Code 25755 Inpt Consult Level 4 Diagnoses Neurogenic claudication due to lumbar spinal stenosis M48.062 HTN, goal below 140/90 I10 Hypercholesterolemia E78.00 Hypothyroidism E03.9 Insomnia G47.00 Heartburn R12 Time Spent (min) 45
[2020-05-14] MEDS: SODIUM CHLORIDE 0.9% 1000ML 1,000 ML IV SCH ×2 (13:37→22:31)
[2020-05-14] MEDS: CLINDAMYCIN 600 MG in DEXTROSE 5% 50 ML IV SCH (15:35)
[2020-05-14] MEDS: oxyCODONE HCL IR 5 MG TAB (IMMEDIATE RELEASE) PO PRN ×2 (15:42→21:06)
[2020-05-14] MEDS: SIMVASTATIN 10 MG TAB PO SCH (21:05)
[2020-05-14] MEDS: amLODIPine BESYLATE 5 MG TAB PO SCH (21:05)
[2020-05-14] MEDS: DOCUSATE SODIUM/SENNA 50/8.6MG TAB PO SCH (21:05)
[2020-05-14] MEDS: MELATONIN 3 MG TAB PO SCH (21:07)
[2020-05-15] MEDS: CLINDAMYCIN 600 MG in DEXTROSE 5% 50 ML IV SCH (00:11)
[2020-05-15] MEDS ORDERED: COUGH DROP (SUGAR FREE) LOZ 24 LOZ/1 BOX BUCCAL ONE (00:13)
[2020-05-15] MEDS: oxyCODONE HCL IR 5 MG TAB (IMMEDIATE RELEASE) PO PRN ×4 (01:44→17:26)
[2020-05-15] MEDS: LEVOTHYROXINE SODIUM 125 MCG TABLET PO SCH (06:11)
[2020-05-15] MEDS: POLYETHYLENE (MIRALAX) 17 GM PACK PO SCH ×4 (06:11→23:57)
[2020-05-15 06:12] LABS: Hematocrit (blood only) 34.4 % (37-47); Hemoglobin 11.8 g/dL (12.0-16.0); Immature Granulocytes # (auto) 0.01 K/uL (0.00-0.02); Immature Granulocytes % (auto) 0.1 %; Lymphocytes # (auto) 0.77 K/uL (1.2-3.4); Lymphocytes % (auto) 6.4 %; Mean Corpuscular Hemoglobin 30.6 pg (25-34); Mean Corpuscular Hgb Conc 34.3 g/dL (32-36); Mean Corpuscular Volume 89.4 fL (80-100); Mean Platelet Volume 10.4 fL (7.4-10.4); Monocytes # (auto) 0.98 K/uL (0.11-0.59); Monocytes % (auto) 8.1 %; Neutrophils # (auto) 10.28 K/uL (1.4-6.5); Neutrophils % (auto) 85.4 %; Platelet Count 222 K/uL (130-400); RDW Standard Deviation 42.6 fL (36.4-46.3); Red Blood Count 3.85 M/uL (4.2-5.4); White Blood Count 12.04 K/uL (4.8-10.8)
[2020-05-15 06:37] LABS: BUN Creatinine Ratio 16.8 (10-20); Calcium 8.3 mg/dl (8.5-10.1); Est GFR (African American) 98.7; Est GFR (Non-African American) 85.2; Potassium 4.1 mmol/L (3.5-5.1)
--- NOTE | 2020-05-15 08:03 | Anesthesiology Progress Note ---
Date of Service May 15, 2020 Anesthesia Post Procedure Vital Signs Vital Signs: Temp Pulse Pulse Resp BP Pulse Ox 05/15/20 07:06 36.7 C 60 16 119/64 95 05/15/20 02:15 36.6 C 63 15 133/72 99 05/14/20 22:52 36.4 C L 62 15 126/76 95 05/14/20 20:03 36.3 C L 64 16 112/61 98 05/14/20 15:51 95 05/14/20 15:36 67 18 144/68 H 100 05/14/20 14:11 71 16 122/61 99 05/14/20 13:15 70 16 127/67 100 05/14/20 12:10 36.3 C L 64 16 114/61 100 05/14/20 11:35 36.4 C L 63 16 109/61 100 05/14/20 11:08 36.4 C L 64 16 104/55 L 100 05/14/20 10:55 63 16 101/49 L 99 05/14/20 10:50 36.3 C L 60 12 102/51 L 99 05/14/20 10:40 64 18 99/56 L 99 05/14/20 10:30 60 12 106/62 98 05/14/20 10:20 61 10 L 110/49 L 98 05/14/20 10:13 36.0 C L 69 17 99/50 L 99 Notes Mental Status: alert / awake / arousable Patient Amnestic to Procedure: Yes Nausea / Vomiting: adequately controlled Pain: adequately controlled Airway Patency, RR, SpO2: stable & adequate BP & HR: stable & adequate Hydration State: stable & adequate Anesthetic Complications: no major complications apparent and Pt Satisfied with anesthetic care
[2020-05-15] MEDS: MULTIVITAMIN TAB PO SCH (09:25)
--- NOTE | 2020-05-15 10:30 | Orthopedic Progress Note ---
Date of Service May 15, 2020 Assessment & Plan (1) Neurogenic claudication due to lumbar spinal stenosis: Patient is postoperative day 1. Overall she is doing well. We will continue with pain control. Continue with aggressive wound bowel regimen. Maintain BLAS drain and dressing. Start physical therapy today. Anticipate discharge home later this week. Admission and Anticipated Discharge Date Admission Date: May 14, 2020 Supervising Physician Co-Signing Physician Notes Dr. Sergio Payne Subjective Patient is postoperative day 1 multilevel lumbar decompression fusion. She is struggling with a bit with pain control off and on. Reports lower back pain only. No radicular complaints. BLAS drain output last shift was 110 cc. H&H is morning are 11.8 and 34.4 respectively. Review of Systems Review of Systems: All systems reviewed & are unremarkable except as noted in HPI & below Physical Exam Physical Exam: Alert and oriented x3 no acute distress Lumbar dressing is clean dry and intact Strength is 5/5 bilateral EHL, dorsiflexion, plantarflexion, quadriceps, hamstrings Calf soft nontender bilaterally. Constitutional: WD/WN, vitals as above Eyes: normal visual campos by confrontation ENMT: external ear and nose normal, oropharynx normal Neck: normal visual inspection Respiratory: normal respiratory effort Cardiovascular: Extremities: normal capillary refill Chest (Breasts): Chest: normal inspection of chest Gastrointestinal (Abdomen): Inspection/Auscultation: abdomen normal to inspection Musculoskeletal: no cyanosis or clubbing, extremities motor strength 5/5 Skin: no rashes, warm and dry Neurologic: normal touch/pain/proprioception and moves all extremities Psychiatric: A+Ox3, euthymic affect Results & Data ([facility]) Vital Signs (Past 12 Hours) Vital Signs Temp Pulse Pulse Resp BP Pulse Ox 05/15/20 07:06 36.7 C 60 16 119/64 95 05/15/20 02:15 36.6 C 63 15 133/72 99 05/14/20 22:52 36.4 C L 62 15 126/76 95
[2020-05-15] MEDS: MELATONIN 3 MG TAB PO SCH (20:24)
[2020-05-15] MEDS: SIMVASTATIN 10 MG TAB PO SCH ×2 (20:25→21:36)
[2020-05-15] MEDS: DOCUSATE SODIUM/SENNA 50/8.6MG TAB PO SCH (20:25)
[2020-05-15] MEDS: amLODIPine BESYLATE 5 MG TAB PO SCH (20:25)
[2020-05-16] MEDS: oxyCODONE HCL IR 5 MG TAB (IMMEDIATE RELEASE) PO PRN ×5 (00:03→21:17)
[2020-05-16] MEDS: LEVOTHYROXINE SODIUM 125 MCG TABLET PO SCH (06:34)
[2020-05-16] MEDS: POLYETHYLENE (MIRALAX) 17 GM PACK PO SCH ×3 (06:35→16:54)
[2020-05-16] MEDS: dexAMETHasone 8 MG in SYRINGE 0 ML IV SCH (08:16)
[2020-05-16] MEDS: MULTIVITAMIN TAB PO SCH (08:38)
--- NOTE | 2020-05-16 10:28 | Orthopedic Progress Note ---
Date of Service May 16, 2020 Assessment & Plan (1) Neurogenic claudication due to lumbar spinal stenosis: Admission and Anticipated Discharge Date Admission Date: May 14, 2020 Patient will continue physical therapy today monitor her BLAS operatively discharge home tomorrow. Subjective Back pain controlled leg pain improved Physical Exam Physical Exam: Patient is good strength testing appears comfortable. Results & Data ([facility]) Vital Signs (Past 12 Hours) Vital Signs Temp Pulse Resp BP Pulse Ox 05/16/20 08:21 37.5 C 72 16 134/63 93
[2020-05-16] MEDS: amLODIPine BESYLATE 5 MG TAB PO SCH (21:14)
[2020-05-16] MEDS: SIMVASTATIN 10 MG TAB PO SCH (21:14)
[2020-05-16] MEDS: DOCUSATE SODIUM/SENNA 50/8.6MG TAB PO SCH (21:14)
[2020-05-16] MEDS: MELATONIN 3 MG TAB PO SCH (21:15)
[2020-05-17] MEDS: POLYETHYLENE (MIRALAX) 17 GM PACK PO SCH ×3 (00:08→12:46)
[2020-05-17] MEDS: oxyCODONE HCL IR 5 MG TAB (IMMEDIATE RELEASE) PO PRN ×3 (04:02→12:45)
[2020-05-17] MEDS: LEVOTHYROXINE SODIUM 125 MCG TABLET PO SCH (05:39)
[2020-05-17] MEDS: MULTIVITAMIN TAB PO SCH (07:57)
[2020-05-17] MEDS: dexAMETHasone 8 MG in SYRINGE 0 ML IV SCH (07:58)
--- NOTE | 2020-05-17 08:24 | Discharge Summary ---
Date of Service May 17, 2020 Admission HPI Per Admitting Provider This is a 75-year-old female presents with chronic persistent back and leg pain. Failing course of nonoperative care she is here for surgical invention. Principal Diagnosis Lumbar spinal stenosis with neurogenic claudication Discharge Data Allergies Allergy/AdvReac Type Severity Reaction Status Date / Time Penicillins Allergy Intermediate Hives Verified 05/14/20 06:36 codeine AdvReac Intermediate Severe Verified 05/14/20 06:36 abdominal pain iodine AdvReac Intermediate Hives Verified 05/14/20 06:36 Consultations 05/14/20 11:33 Consult Hospitalist Routine Procedures Performed Operation Date: 05/14/20 07:45 Actual Procedures p L3-S1 Decompression and Fusion, Spinal Cord Monitoring, Application of Bone Morphogenetic Protein and Allograft, Placement of Interbody L5-S1, L4-L5 - Sergio Payne DO Ordered Studies 05/14/20 07:45 FL fluoroscopy <1hr Routine FL lumbar spine 2-3V Routine Hospital Course (1) Neurogenic claudication due to lumbar spinal stenosis: Patient went lumbar decompression fusion tolerated so was taken to orthopedic for postoperative. Postop day 1 she was up and ambulating progressed to postop day #2 on postop day #3 she was ambulating well pain controlled X strength testing BLAS drain decreasing appropriately. Subsequent discharge home. Discharge orders instructions found the chart for further review. Total Time Total Time Spent Total Time Spent (In Minutes): 20 minutes Discharge Plan Discharge Items Patient Disposition: Home - Self-Care Reason For Visit: Spinal Stenosis, Lumbar Region with Neurogenic Discharge Diagnosis: Lumbar spinal stenosis with neurogenic claudication Activity: As commented below Non-emergency contact: Primary Care Provider Call non-emergency contact if: you have any medication questions Follow-up/Referrals: Geena Leiva MD [Primary Care Provider] - Diet: Regular Addtl Attending Provider Instructions: ACTIVITY RECOMMENDATIONS: SELF CARE INSTRUCTIONS AFTER THORACIC/LUMBAR FUSIONS 1. You may walk to your tolerance. It is good exercise for your legs and back. Expect some back and intermittent leg aches and pains. 2. You may perform "counter-top" level activities (make a sandwich, skinny with a project, etc.). 3. No bending or lifting of more than 10 pounds or back twisting of any nature (roll like a log when turning in bed). 4. You may ride in a car for 20-30 minutes at a time. No driving until after your first visit with your doctor. 5. Frequent changes of position and restricting sitting to 30 minutes at a time will help limit the amount of back spasms and stiffness you may experience. 6. You may discontinue the use of ambulatory aids (cane, crutches, etc.) once your strength and confidence allow. 7. You may open hearth door liner the shower and let water strike your incision when you arrive home at least once daily. Do not take a tub bath, sit in a hot tub or go into a swimming pool until after your first recheck in the office. SPECIAL CARE INSTRUCTIONS: VERY IMPORTANT TO READ AND REVIEW A. Your surgical incision has been closed with a cosmetic suture under the skin that will dissolve in about 6 weeks. In 14 days, you can use a pair of clean scissors and cut the suture that is left outside of the skin at the ends of your incision. 1. The small skin tapes can be removed 7 days after surgery if they have not fallen off by that point. 2. You may keep the wound open to air as much as possible to promote healing after post-op day number 5 unless told otherwise by your doctor. 3. If you think the wound looks like it is becoming infected (redness or worsening drainage) and/or you are experiencing fever, chill or worsening back pain and muscle spasms, contact the office so that we may evaluate you as soon as possible. B. Complications are uncommon, but please contact us if you have any signs or symptoms of: 1. wound infection (fever higher than 102.5 degrees F, redness, separation of wound, drainage, or increasing pain from the incision) 2. blood clots in legs (pain, swelling, redness and warmth in legs) 3. urinary tract infection (fever higher than 102.5 degrees F, burning upon urination or increased frequency of urination) 4. nerve problems (inability to walk on your toes or heels, numbness, loss of bowel or bladder control) 5. any other symptoms that concern you C. Please call the office at if you have any concerns or questions about your operation or recovery. D. No smoking! Smoking drastically decreases the chance of a solid fusion. E. Do not take any anti-inflammatory medications (Indocin, Advil, Motrin, Aspirin, Naprosyn, etc.) as these may inhibit the chance of a solid fusion. Tylenol is okay to take for pain. MANAGING PAIN AFTER SPINAL SURGERY 1. Narcotic medication is intended for short-term use and will be provided for surgical pain. Surgical pain usually lasts for a period of 4-6 weeks. Narcotic medication includes Percocet, Vicodin, Darvocet, Tylenol #3 or Lortab. 2. Longer-term pain is more appropriately treated with non-narcotic medication such as Tylenol ES. 3. Muscle spasm is not appropriately treated with narcotics. Muscle relaxers such as Soma, Flexeril or Skelaxin can be used along with Tylenol ES. 4. Remember that we all live with some "aches and pains". This is not unusual or uncommon after an injury or as we get older. a. Back pain is expected and may include muscle spasms for 4 to 6 weeks after surgery. The pain should gradually improve. If the pain worsens for no apparent reason, please contact the office. b. Intermittent leg pain may also be experienced and should not be concerned about unless it worsens for no apparent reason. If so, please contact the office. 5. We will provide appropriate medication within the normal guidelines of their prescribed use. We will also be very cautious and aware of potential abuse and extended duration of patients' medication needs. a. Pain medications are for your comfort and to assist with sleep and rest so that the tissue can heal. They are not provided in order to return to normal activity and should not be used through the day. To do so or worsening pain at night can result from ongoing tissue damage and development of tolerance to the prescribed medicine. 6. Please allow 2-3 days to process refills. Prescriptions will not be mailed but must be picked up at the office. FOLLOW UP VISIT: Keep your scheduled follow-up appointment. Any questions, please call the office at . Pending Studies at Discharge: No Stand-Alone Forms: My [employer], Smoking Cessation Medications and ND Order Prescriptions: New tramadol 50 mg tablet 50 mg PO Q6H PRN (Reason: pain, moderate) Qty: 30 RF: 0 oxycodone 5 mg tablet 5 mg PO Q6H PRN (Reason: pain, severe) Qty: 30 RF: 0 Continued levothyroxine 125 mcg tablet 62.5 mcg PO QAM Qty: 45 RF: 1 omeprazole 20 mg capsule,delayed release(DR/EC) 20 mg PO QAM PRN (Reason: acid reflux) Qty: 90 RF: 1 amlodipine 10 mg tablet 10 mg PO PM Qty: 90 RF: 1 simvastatin 10 mg tablet 10 mg PO PM Qty: 90 RF: 1 lorazepam 0.5 mg tablet 0.5 mg PO DAILY PRN (Reason: anxiety) Qty: 90 RF: 0 melatonin 5 mg capsule 5 mg PO QPM RF: 0 multivitamin Tablet 1 tab PO QAM RF: 0 Citracal-D3 Maximum Plus 325 mg-12.5 mcg -2.75 mg Tablet 1 tab PO BID RF: 0 zolpidem [Ambien] 5 mg tablet 5 mg PO HS PRN (Reason: Sleep) RF: 0 Discharge Orders: Discharge Order (Routine); Ordered 05/17/20 Ordered By: Sergio Payne Admission Data Admit Date/Time: 05/14/20 10:30 Attending Provider: Sergio Payne Admit Provider: Sergio Payne Primary Care Provider: Geena Leiva Other Providers: Sergio Roque
== END 2020-05-17 14:29 | disposition home or self-care (01) | DRG 455 ==
LOC: ASU 06:13 → 3E 10:30